=== PATIENT | male | born 1955 | race Caucasian/White ===

== ENCOUNTER 2016-04-15 06:24 | Day surgery (SDC) | payer BC ==
[2016-04-15] MEDS ORDERED: Lidocaine 1% with EPINEPHrine 1:100,000 50 ML MDV ONE (06:37)
[2016-04-15] MEDS ORDERED: Bupivacaine 0.5% 50 ML MDV ONE (06:37)
[2016-04-15] MEDS ORDERED: Dextrose 5%-Lactated Ringers 1,000 ML IV SCH (07:00)
[2016-04-15] MEDS ORDERED: fentaNYL 100 MCG/2 ML SDV ONE (07:15)
[2016-04-15] MEDS ORDERED: Midazolam 1 MG/ML 2 ML SDV ONE (07:15)
[2016-04-15] MEDS ORDERED: Propofol 200 MG/20 ML SDV ONE (07:15)
[2016-04-15] MEDS ORDERED: ceFAZolin 2 GM in Sodium Chloride 0.9% 50 ML IV ONE (07:45)
[2016-04-15] MEDS ORDERED: ceFAZolin 2 GM in Premix Bag 1 BAG IV ONE (07:45)
[2016-04-15] MEDS ORDERED: Ketorolac 60 MG/2 ML SDV IM ONE (08:19)
[2016-04-15 09:21] VITALS: BP 104/73
--- NOTE | 2016-04-22 07:49 | OR ---
DATE OF PROCEDURE: 04/15/2016 PREOPERATIVE DIAGNOSES: 1. Lipoma of right upper back. 2. Atypical skin lesion, right upper back. POSTOPERATIVE DIAGNOSES: 1. Subfascial lipoma, right upper back. 2. Atypical skin lesion, right upper back. OPERATIVE PROCEDURE: 1. Excision of subfascial lipoma, right upper back ([id number]). 2. Excision of atypical skin lesion, right upper back with layered closure ([id number]). ANESTHESIA: Local plus IV sedation. INDICATIONS FOR PROCEDURE: This is a 60-year-old male presenting with an enlarging lipoma in the right upper back, which is increasingly symptomatic. Initially he was noted to have atypical appearing skin lesion with this being darkened and of somewhat variable pigmentation and outline. Given this, this is to be excised as well. Potential risks of procedure including bleeding, infection, local recurrence of the problems were all reviewed, and the patient wishes to proceed. DETAILS OF PROCEDURE: The patient was taken to the operative room and placed in the left lateral decubitus position. IV sedation was administered, after which the upper back and surrounding areas were prepped and draped. The areas of concern were anesthetized with 1% lidocaine mixed with Marcaine. Initially, the atypical appearing skin lesion was excised. The lesion measured 1.0 cm, and the incision length was 2.4 cm. This was closed with some 5- 0 Vicryl stitch deep and then figueroa for the skin. The incision was then extended, and the lipoma was then dissected free. The plane of the lipoma was underneath the muscular fascia, and as the lipoma was dissected free, general musculature was laid bare, consistent with the lipoma being in the subfascial location. The lipoma itself measured 6.0 cm and was removed intact. The deeper soft tissue was then approximated with some 3-0 and 4-0 Vicryl stitch deep and then figueroa for the skin. Dressing was applied. The patient was taken to the recovery room in satisfactory condition. Jhoan Guzman MD /[id number]
== END 2016-04-15 09:48 | disposition home or self-care (01) ==
LOC: JP.SDS 06:24
PROVIDERS: ATTEND Surgery
PROC: 0HQ6XZZ Repair Back Skin, External Approach (ICD-10-PCS; principal; 2016-04-15)
PROC: 0JB70ZZ Excision of Back Subcutaneous Tissue and Fascia, Open Approach (ICD-10-PCS; 2016-04-15)
DX: D17.1 Benign lipomatous neoplasm of skin and subcutaneous tissue of trunk (principal); D23.5 Other benign neoplasm of skin of trunk
CPT/HCPCS: 11401; 12031; 21933; 88304; 88305; J0690; J1885; J2250; J2704; J3010; J7042; J7050

== ENCOUNTER 2016-05-23 21:01 | Emergency (ER) | payer BC ==
[2016-05-23] MEDS ORDERED: HYDROmorphone 1 MG/ML Syringe IVPUSH ONE (21:09)
[2016-05-23] MEDS ORDERED: Ondansetron 4 MG/2 ML SDV IVPUSH ONE (21:10)
[2016-05-23] MEDS ORDERED: Ketorolac 30 MG/ML SDV IVPUSH ONE (21:14)
[2016-05-23] MEDS ORDERED: Sodium Chloride 0.9% 1,000 ML IV SCH (21:15)
[2016-05-23 21:16] VITALS: BP 135/69
--- NOTE | 2016-05-23 21:50 | EDM.PDOC ---
ED HPI GENERAL MEDICAL PROBLEM - General Chief Complaint: Chest Pain Stated Complaint: CHEST PAINS Time Seen by Provider: 05/23/16 21:15 Source of Information: Reports: Patient, Family History Limitations: Reports: No limitations - History of Present Illness INITIAL COMMENTS - FREE TEXT/NARRATIVE: 60-year-old male who has had intense left-sided chest pain all day. It hurts to move, it hurts to breathe but he is not short of breath. It has gotten to the point where it is a "10 out of 10" so he came in to have it checked. He has had this several times in the past this resolved spontaneously. No recent trauma. Onset: unknown/unsure Location: Reports: chest, upper extremity, left Quality: Reports: Ache, Stabbing Severity: moderate Associated Symptoms: Reports: chest pain. Denies: cough, nausea/vomiting, shortness of breath Chest Pain Score (Numeric/FACES): 10 - Related Data Allergies Allergy/AdvReac Type Severity Reaction Status Date / Time No Known Allergies Allergy Verified 04/27/13 07:18 Home Meds: Home Meds Propranolol [Inderal] 20 mg PO ASDIRECTED 04/11/16 [History] Aspirin/Calcium Carbonate/Mag [Aspirin Buffered 325 mg Tab] 325 mg PO ASDIRECTED PRN 05/23/16 [History] Past Medical History HEENT History: Reports: None Cardiovascular History: Reports: Other (see below) Other Cardiovascular History: chest and neck pain, has had 2 stress tests without any issues Neurological History: Reports: Other (see below) Other Neuro History: tremor Psychiatric History: Reports: Anxiety - Infectious Disease History Infectious Disease History: Reports: Chicken pox, Measles, Mumps - Past Surgical History HEENT Surgical History: Reports: Tonsillectomy Cardiovascular Surgical History: Reports: None Neurological Surgical History: Reports: None Musculoskeletal Surgical History: Reports: Arthroscopic knee, Other (see below) Other Musculoskeletal Surgeries/Procedures:: bilateral shoulder surgeries; right arthroscopic knee; neuroma right foot 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 Dermatological Surgical History: Reports: None Social & Family History - Family History Family Medical History: Noncontributory - Tobacco Use Smoking Status *Q: Never Smoker Second Hand Smoke Exposure: No - Caffeine Use Caffeine Use: Reports: None - Alcohol Use Days Per Week of Alcohol Use: 5 Number of Drinks Per Day: 1 Total Drinks Per Week: 5 - Recreational Drug Use Recreational Drug Use: Yes ED ROS GENERAL - Review of Systems Review Of Systems: See Below Constitutional: Denies: fever, chills Respiratory: Reports: Pleuritic Chest Pain Cardiovascular: Reports: Chest pain GI/Abdominal: Denies: Abdominal pain, Nausea, Vomiting Neurological: Reports: No Symptoms ED EXAM, GENERAL - Physical Exam Exam: See Below Exam Limited By: No limitations General Appearance: alert, no apparent distress (Looks uncomfortable but not distressed) Eye Exam: bilateral eye: EOMI Respiratory/Chest: no respiratory distress, lungs clear, other (The chest pain seems to be reproducible with rotation of the chest are movement of the left shoulder but not to palpation) Cardiovascular: regular rate, rhythm. No: extra beats GI/Abdominal: non tender Psychiatric: normal affect, normal mood Skin Exam: Warm, Dry. No: Rash (No rash over painful area) EKG INTERPRETATION Rhythm: NSR Course - Vital Signs Last Recorded V/S: Last Vital Signs Temp 97.2 F 05/23/16 21:16 Pulse 69 05/23/16 21:16 Resp 16 05/23/16 21:16 BP 135/69 05/23/16 21:16 Pulse Ox 99 05/23/16 21:16 - Orders/Labs/Meds Labs: Laboratory Tests 05/23/16 05/23/16 05/23/16 Range/Units 21:11 21:11 21:11 WBC 8.8 (4.5-11.0) K/uL RBC 5.06 (4.30-5.90) M/uL Hgb 14.8 (12.0-15.0) g/dL Hct 42.8 (40.0-54.0) % MCV 85 (80-98) fL MCH 29 (27-31) pg MCHC 35 (32-36) % Plt Count 259 (150-400) K/uL Neut % (Auto) 59 (36-66) % Lymph % (Auto) 29 (24-44) % Willacy % (Auto) 10 H (2-6) % Eos % (Auto) 2 (2-4) % Baso % (Auto) 0 (0-1) % PT 10.4 (9.5-12.0) sec INR 0.98 (0.80-1.20) Sodium 144 (140-148) mmol/L Potassium 3.7 (3.6-5.2) mmol/L Chloride 106 (100-108) mmol/L Carbon Dioxide 29 (21-32) mmol/L Anion Gap 8.8 (5.0-14.0) mmol/L BUN 18 (7-18) mg/dL Creatinine 1.1 (0.8-1.3) mg/dL Est Cr Clr Drug Dosing 86.58 mL/min Estimated GFR (MDRD) > 60 (>60) Glucose 99 (74-106) mg/dL Calcium 8.4 L (8.5-10.1) mg/dL Magnesium 2.1 (1.8-2.4) mg/dL Total Bilirubin 0.7 (0.2-1.0) mg/dL AST 16 (15-37) U/L ALT 30 (12-78) U/L Alkaline Phosphatase 94 (46-116) U/L Troponin I < 0.017 (0.000-0.056) ng/mL Total Protein 7.0 (6.4-8.2) g/dL Albumin 3.6 (3.4-5.0) g/dL Globulin 3.4 (2.3-3.5) g/dL Albumin/Globulin Ratio 1.1 L (1.2-2.2) Meds: Medications Discontinued Medications Generic Name Dose Route Start Last Admin Trade Name Ygq PRN Reason Stop Dose Admin Hydromorphone HCl 1 mg 05/23/16 21:09 05/23/16 21:45 Dilaudid IVPUSH 05/23/16 21:10 1 mg ONETIME ONE Administration Sodium Chloride 1,000 mls @ 125 mls/hr 05/23/16 21:15 Normal Saline IV ASDIRECTED [facility] Ketorolac Tromethamine 30 mg 05/23/16 21:14 05/23/16 21:21 Toradol IVPUSH 05/23/16 21:15 30 mg ONETIME ONE Administration Ondansetron HCl 4 mg 05/23/16 21:10 05/23/16 21:45 Zofran IVPUSH 05/23/16 21:11 4 mg ONETIME ONE Administration - Re-Assessments/Exams Free Text/Narrative Re-Assessment/Exam: 05/26/16 08:53 EKG was negative, a two-view chest x-ray was negative. The patient was given 30 mg of Toradol IV while awaiting labs which were reassuring including a negative troponin. He really didn't get any significant change in pain with the Toradol so 1 mg of Dilaudid IV was given. He'll be placed on 60 mg of prednisone daily for the next 5 days to treat a presumptive inflammatory process such as a neuritis or pleurisy. If not improved in 3-[address] or MRI may be warranted. Departure - Departure Time of Disposition: 22:27 Disposition: Home, Self-Care 01 Condition: good Clinical Impression: Chest pain, atypical Instructions: Nonspecific Chest Pain Referrals: Antony Christine MD [Primary Care Provider] - Forms: ED Department Discharge Care Plan Goals: Take 6 pills of prednisone with your morning meal for 5 consecutive days. Activity as tolerated. Recheck in 5-6 days if not significantly improving or return anytime sooner if worsening or concerns.
--- NOTE | 2016-05-26 08:40 | CR ---
Chest 1V Frontal HISTORY: chest pain COMPARISON: 04/27/2013 FINDINGS: Lungs appear clear and normally aerated. Cardiomediastinal silhouette is within normal limits. No va scular redistribution or pleural fluid can be seen. Bony structures and soft tissues are unremarkabl e. IMPRESSION: No acute chest abnormality or significant interval change is identified.
== END 2016-05-23 22:27 | disposition home or self-care (01) ==
LOC: JP.ED 21:01
DX: R07.89 Other chest pain (principal); Z79.82 Long term (current) use of aspirin; Z79.899 Other long term (current) drug therapy; Z98.890 Other specified postprocedural states
CPT/HCPCS: 36415; 71010; 80053; 83735; 84484; 85025; 85610; 93005; 96361; 96374; 96375; 99285; J1170; J1885; J2405

== ENCOUNTER 2019-08-21 13:25 | Emergency (ER) | payer BC, MEDICAID ==
[2019-08-21 14:01] VITALS: BP 109/77; PULSE 72
[2019-08-21] MEDS ORDERED: methylPREDNISolone Sodium Succinate 125 MG/2 ML SDV IM ONE (14:22)
[2019-08-21] MEDS ORDERED: diphenhydrAMINE 25 MG Cap PO ONE (14:22)
--- NOTE | 2019-08-21 14:23 | EDM.PDOC ---
ED HPI GENERAL MEDICAL PROBLEM - General Chief Complaint: Bite:Animal, Insect Time Seen by Provider: 08/21/19 14:05 Source of Information: Reports: Patient, Family, RN Notes Reviewed History Limitations: Reports: No Limitations - History of Present Illness INITIAL COMMENTS - FREE TEXT/NARRATIVE: 63-year-old gentleman presents emergency department today with a wasp sting to his left calf he does have a small ulcer where the bite happened his calf is markedly edematous with mild amount erythema around the calf foot is also markedly edematous no difficulty breathing no difficulty swallowing - Related Data Allergies Allergy/AdvReac Type Severity Reaction Status Date / Time No Known Allergies Allergy Verified 08/21/19 13:52 Home Meds: Home Meds NK [No Known Home Meds] 08/21/19 [History] Past Medical History Cardiovascular History: Reports: Other (See Below) Other Cardiovascular History: chest and neck pain, has had 2 stress tests without any issues Neurological History: Reports: Other (See Below) Other Neuro History: tremor Psychiatric History: Reports: Anxiety - Infectious Disease History Infectious Disease History: Reports: Chicken Pox, Measles, Mumps - Past Surgical History HEENT Surgical History: Reports: Tonsillectomy Musculoskeletal Surgical History: Reports: Arthroscopic Knee, Other (See Below) Dermatological Surgical History: Reports: None Social & Family History - Family History Family Medical History: Noncontributory - Tobacco Use Smoking Status *Q: Never Smoker - Caffeine Use Caffeine Use: Reports: None ED ROS GENERAL - Review of Systems Review Of Systems: See Below Constitutional: Reports: No Symptoms HEENT: Reports: No Symptoms Respiratory: Reports: No Symptoms Cardiovascular: Reports: No Symptoms GI/Abdominal: Reports: No Symptoms Skin: Reports: Erythema, Wound, Other (Edema) ED EXAM, ANIMAL BITE - Physical Exam Exam: See Below Text/Narrative:: Examination of the left lower extremity I do appreciate a small ulcer with a sting occurred there is mild amount erythema around this area calf is markedly edematous I cannot palpitate a pedal pulse secondary to the edema in the foot Exam Limited By: No Limitations General Appearance: Alert, WD/WN, No Apparent Distress Throat/Mouth: No Airway Compromise Respiratory/Chest: No Respiratory Distress, Lungs Clear, Normal Breath Sounds, No Accessory Muscle Use, Chest Non-Tender Cardiovascular: Regular Rate, Rhythm, No Murmur Course - Vital Signs Last Recorded V/S: Last Vital Signs Temp 98.4 F 06/28/20 13:59 Pulse 72 08/21/19 13:59 Resp 14 08/21/19 13:59 BP 109/77 08/21/19 13:59 Pulse Ox 98 08/21/19 13:59 - Orders/Labs/Meds Meds: Medications Discontinued Medications Generic Name Dose Route Start Last Admin Trade Name Clarence PRN Reason Stop Dose Admin Diphenhydramine HCl 25 mg 08/21/19 14:22 Benadryl PO 08/21/19 14:23 ONETIME ONE Methylprednisolone Sodium Succinate 125 mg 08/21/19 14:22 Solu-Medrol IM 08/21/19 14:23 ONETIME ONE Departure - Departure Time of Disposition: 14:27 Disposition: Home, Self-Care 01 Condition: Fair Clinical Impression: Allergic reaction to insect sting Qualifiers: Encounter type: initial encounter Injury intent: accidental or unintentional Qualified Code(s): T63.481A - Toxic effect of venom of other arthropod, accidental (unintentional), initial encounter - Discharge Information Instructions: Insect Bite, Adult, [id number] Referrals: PCP,None [Primary Care Provider] - Forms: ED Department Discharge Additional Instructions: Continue to use Benadryl and/or loratadine for comfort, fill the injectable epinephrine and carry this with you anytime you were at risk for potential exposure to wasps, please followup with your primary care provider in 5-7 days if not better, please call return to the emergency department with worsening of symptoms. Sepsis Event Note (ED) - Evaluation Sepsis Screening Result: No Definite Risk - Focused Exam Vital Signs: Vital Signs Temp Pulse Resp BP Pulse Ox 08/21/19 13:59 98.4 F 72 14 109/77 98 - Assessment/Plan Plan: Assessment Acuity = acute Site and laterality = allergic reaction Etiology = wasp sting Manifestations = edema Location of injury = Home Lab values = none Plan Provided Benadryl and Solu-Medrol in the emergency department did write a prescription for injectable epinephrine which she can fill at his pharmacy, follow-up with primary care as needed This note was dictated using [employer] voice recognition software please call with any questions on syntax or grammar.
== END 2019-08-21 15:01 | disposition home or self-care (01) ==
LOC: JP.ED 13:25
DX: T63.461A Toxic effect of venom of wasps, accidental (unintentional), initial encounter (principal)
CPT/HCPCS: 96372; 99282; A9270; J2930

== ENCOUNTER 2022-10-17 10:16 | Emergency (ER) | payer MEDICAID, MEDICARE, OTHER ==
[2022-10-17 10:33] VITALS: BP 133/71; PULSE 52
[2022-10-17 11:23] LABS: BASOPHILS PERCENT AUTO 0.3 % (0.1-1.3); EOSINOPHILS ABSOLUTE AUTO 0.11 K/uL (0.00-0.40); EOSINOPHILS PERCENT AUTO 1.7 % (0.0-5.4); HEMATOCRIT 42.3 % (38.4-49.7); HEMOGLOBIN 14.6 g/dL (12.9-16.9); IMMATURE GRAN PERCENT AUTO 0.2 % (0.0-0.7); LYMPHOCYTES ABSOLUTE AUTO 1.64 K/uL (0.8-3.3); LYMPHOCYTES PERCENT AUTO 25.8 % (11.4-47.7); MEAN CORPUSCULAR HEMOGLOBIN 29.3 pg (31.6-35.5); MEAN CORPUSCULAR HGB CONC 34.5 g/dL (31.6-35.5); MEAN CORPUSCULAR VOLUME 84.8 fL (81.4-99.0); MONOCYTES PERCENT AUTO 7.9 % (3.3-12.6); NEUTROPHILS ABSOLUTE AUTO 4.07 K/uL (1.0-7.6); NEUTROPHILS PERCENT AUTO 64.1 % (40.0-78.1); PLATELET COUNT,PLT 267 K/uL (130-375); RED BLOOD CELL COUNT 4.99 M/uL (4.14-5.76); WHITE BLOOD CELL COUNT,WBC 6.4 K/uL (3.2-11.0)
[2022-10-17 11:26] LABS: BASOPHILS ABSOLUTE AUTO 0.02 K/uL (0.00-0.10); IMMATURE GRAN ABSOLUTE AUTO 0.01 K/uL (0.00-0.23)
[2022-10-17 11:47] LABS: A/G RATIO 0.9 (1.2-2.2); ALANINE AMINOTRANSFERASE,ALT 26 U/L (12-78); ALBUMIN 3.2 g/dL (3.4-5.0); ALKALINE PHOSPHATASE 105 U/L (46-116); ASPARTATE AMNIOTRANSFERASE,AST 16 U/L (15-37); BILIRUBIN TOTAL 0.8 mg/dL (0.2-1.0); BLOOD UREA NITROGEN,BUN 21 mg/dL (7-18); CALCIUM 8.4 mg/dL (8.5-10.1); CARBON DIOXIDE,CO2 29 mmol/L (21-32); CHLORIDE,CL 103 mmol/L (100-108); CREATININE 1.1 mg/dL (0.8-1.3); EST CRCL DRUG DOSING (CG) 80.01 mL/min; ESTIMATED GFR 74 mL/min (>60); GLUCOSE RANDOM 99 mg/dL (74-106); POTASSIUM,K 4.1 mmol/L (3.6-5.2); PROTEIN TOTAL,TP 6.8 g/dL (6.4-8.2); SODIUM,NA 139 mmol/L (140-148)
[2022-10-17 11:54] LABS: ANION GAP 11.1 mmol/L (5.0-14.0)
[2022-10-17] MEDS ORDERED: Sodium Chloride 0.9% 10 ML Syringe FLUSH PRN (12:04)
[2022-10-17] MEDS ORDERED: Sodium Chloride 0.9% 1,000 ML IV ONE (12:05)
[2022-10-17 12:12] LABS: LYME AB IgG Negative (Negative); LYME AB IgM Negative (Negative)
== END 2022-10-17 13:18 | disposition home or self-care (01) ==
LOC: JP.ED 10:16
DX: R42 Dizziness and giddiness (principal); R53.83 Other fatigue; R00.1 Bradycardia, unspecified; I44.0 Atrioventricular block, first degree
CPT/HCPCS: 36415; 71046; 71046-26; 80053; 84484; 85025; 86140; 86618; 93005; 99284

== ENCOUNTER 2023-03-13 14:27 | Emergency (ER) | payer MEDICARE ==
[2023-03-13 14:44] VITALS: BP 127/69; PULSE 71
[2023-03-13] MEDS ORDERED: Sodium Chloride 0.9% 10 ML Syringe FLUSH PRN ×2 (15:34→15:55)
[2023-03-13] MEDS ORDERED: Sodium Chloride 0.9% 1,000 ML IV STA (15:34)
[2023-03-13 15:49] LABS: BASOPHILS ABSOLUTE AUTO 0.04 K/uL (0.00-0.10); BASOPHILS PERCENT AUTO 0.5 % (0.1-1.3); EOSINOPHILS ABSOLUTE AUTO 0.16 K/uL (0.00-0.40); HEMATOCRIT 40.8 % (38.4-49.7); IMMATURE GRAN ABSOLUTE AUTO 0.03 K/uL (0.00-0.23); IMMATURE GRAN PERCENT AUTO 0.4 % (0.0-0.7); LYMPHOCYTES ABSOLUTE AUTO 1.63 K/uL (0.8-3.3); LYMPHOCYTES PERCENT AUTO 20.2 % (11.4-47.7); MEAN CORPUSCULAR HEMOGLOBIN 28.7 pg (31.6-35.5); MEAN CORPUSCULAR HGB CONC 34.3 g/dL (31.6-35.5); MEAN CORPUSCULAR VOLUME 83.6 fL (81.4-99.0); MONOCYTES ABSOLUTE AUTO 0.58 K/uL (0.20-0.90); MONOCYTES PERCENT AUTO 7.2 % (3.3-12.6); NEUTROPHILS ABSOLUTE AUTO 5.64 K/uL (1.0-7.6); NEUTROPHILS PERCENT AUTO 69.7 % (40.0-78.1); PLATELET COUNT,PLT 375 K/uL (130-375); RED BLOOD CELL COUNT 4.88 M/uL (4.14-5.76); WHITE BLOOD CELL COUNT,WBC 8.1 K/uL (3.2-11.0)
[2023-03-13] MEDS ORDERED: Sodium Chloride 0.9% 80 ML IV SCH (16:00)
[2023-03-13] MEDS ORDERED: Iopamidol 612 MG/ML 100 ML Bottle IV SCH (16:00)
[2023-03-13 16:05] LABS: PROTHROMBIN TIME 10.6 sec (9.2-10.6)
[2023-03-13 16:10] LABS: ALBUMIN 3.1 g/dL (3.4-5.0); BLOOD UREA NITROGEN,BUN 27 mg/dL (7-18); CALCIUM 8.4 mg/dL (8.5-10.1); CARBON DIOXIDE,CO2 27 mmol/L (21-32); CHLORIDE,CL 103 mmol/L (100-108); ESTIMATED GFR 82 mL/min (>60); GLUCOSE RANDOM 109 mg/dL (74-106); POTASSIUM,K 3.9 mmol/L (3.6-5.2); PROTEIN TOTAL,TP 7.2 g/dL (6.4-8.2); SODIUM,NA 139 mmol/L (140-148)
[2023-03-13 16:11] LABS: A/G RATIO 0.8 (1.2-2.2); ALANINE AMINOTRANSFERASE,ALT 28 U/L (12-78); ALKALINE PHOSPHATASE 132 U/L (46-116); ANION GAP 12.9 mmol/L (5.0-14.0); ASPARTATE AMNIOTRANSFERASE,AST 18 U/L (15-37); BILIRUBIN TOTAL 0.4 mg/dL (0.2-1.0)
[2023-03-13 17:22] LABS: APPEARANCE,URINE CLEAR (CLEAR); BILIRUBIN,URINE NEGATIVE (NEGATIVE); COLOR,URINE YELLOW (YELLOW); GLUCOSE,URINE NEGATIVE (NEGATIVE); KETONES,URINE NEGATIVE (NEGATIVE); LEUKOCYTE ESTERASE,URINE NEGATIVE (NEGATIVE); NITRITE,URINE NEGATIVE (NEGATIVE); OCCULT BLOOD,URINE NEGATIVE (NEGATIVE); PH,URINE 5.5 (5.0-8.0); PROTEIN,URINE NEGATIVE (NEGATIVE); UROBILINOGEN,URINE 0.2 EU/dL (0.2-1.0)
[2023-03-13 17:27] LABS: AMORPHOUS SEDIMENT,URINE NOT SEEN; BACTERIA,URINE NOT SEEN; EPITHELIAL CELLS,URINE NOT SEEN; MUCUS,URINE NOT SEEN; RBC,URINE 0-5 (0-5); WBC,URINE 0-5 (0-5)
== END 2023-03-13 18:26 | disposition home or self-care (01) ==
LOC: JP.ED 14:27
DX: R10.12 Left upper quadrant pain (principal)
CPT/HCPCS: 36415; 74177; 74177-26; 80053; 81001; 83605; 83880; 85025; 85610; 86140; 99284; J3490; J7030; Q9967

== ENCOUNTER 2024-08-25 21:42 | Emergency (ER) | payer MEDICARE ==
[2024-08-25 22:53] VITALS: BP 127/68; PULSE 57
[2024-08-25] MEDS: methylPREDNISolone Sodium Succinate 125 MG/2 ML SDV IM ONE (23:54)
== END 2024-08-26 00:06 | disposition home or self-care (01) ==
LOC: JP.ED 21:42
DX: S60.562A Insect bite (nonvenomous) of left hand, initial encounter (principal); Z91.030 Bee allergy status; Z86.16 Personal history of COVID-19; W57.XXXA Bitten or stung by nonvenomous insect and other nonvenomous arthropods, initial encounter; Y93.89 Activity, other specified
CPT/HCPCS: 96372; 99283; J2919

== ENCOUNTER 2024-11-17 06:42 | Day surgery (SDC) | payer MEDICARE ==
[2024-11-17] MEDS ORDERED: Propofol 200 MG/20 ML SDV ONE ×2 (07:18→08:46)
[2024-11-17] MEDS ORDERED: fentaNYL 50 MCG/ML SDV ONE (07:18)
[2024-11-17] MEDS ORDERED: Midazolam 1 MG/ML 2 ML SDV ONE (07:18)
[2024-11-17] MEDS: Lactated Ringers 1,000 ML IV SCH (07:37)
[2024-11-17 09:58] VITALS: BP 99/64; PULSE 53
== END 2024-11-17 10:00 | disposition home or self-care (01) ==
LOC: JP.SDS 06:42
PROVIDERS: ATTEND Surgery
DX: Z12.11 Encounter for screening for malignant neoplasm of colon (principal); D12.2 Benign neoplasm of ascending colon; D12.3 Benign neoplasm of transverse colon; K64.8 Other hemorrhoids; Z91.09 Other allergy status, other than to drugs and biological substances; Z91.030 Bee allergy status; Z86.0100 Personal history of colon polyps, unspecified
CPT/HCPCS: 00811; 45380; 45385; J2250; J2704; J3010; J7120